=== PATIENT | male | born 1975 | race Hispanic/Latino ===

== ENCOUNTER 2023-05-31 07:24 | Day surgery (SDC) | payer BC ==
[2023-05-29 12:14] LABS: BASOPHILS # (AUTO) 0.05 K/uL (0.00-0.20); BASOPHILS % (AUTO) 0.8 % (0.0-5.0); EOSINOPHILS # (AUTO) 0.15 K/uL (0.00-0.70); EOSINOPHILS % (AUTO) 2.3 % (0.0-8.0); HEMATOCRIT 41.7 % (42-54); IMMATURE GRANULOCYTE ABSOLUTE 0.04 K/uL (0-1); LYMPHOCYTES # (AUTO) 1.7 K/uL (1.0-4.8); MEAN CORPUSCULAR HEMOGLOBIN 22.9 pg (27.0-33.0); MEAN CORPUSCULAR HGB CONC 30.5 g/dL (32.0-36.0); MEAN CORPUSCULAR VOLUME 75.3 fL (79-99); MONOCYTES # (AUTO) 0.6 K/uL (0.1-1.0); MONOCYTES % (AUTO) 8.5 % (3.0-13.0); NEUTROPHILS # (AUTO) 3.9 K/uL (1.8-7.7); NEUTROPHILS % (AUTO) 60.8 % (40.0-77.0); PLATELET COUNT (AUTO) 343 K/uL (130-400); RED BLOOD CELL COUNT(AUTO) 5.54 MIL/uL (4.50-6.20); RED CELL DISTRIBUTION WIDTH 17.7 % (11.0-15.5); WHITE BLOOD COUNT (AUTO) 6.5 K/uL (4.8-10.8)
[2023-05-29 12:27] LABS: CREATININE 0.8 mg/dL (0.5-1.5); POTASSIUM 4.3 mmol/L (3.5-5.1)
[2023-05-29 12:50] VITALS: BP 138/81; PULSE 75; RESP 16
[2023-05-31] VITALS (18 sets, daily range): BP systolic 91–133; BP diastolic 60–95; PULSE 62–84; RESP 14–19
[~2023-05-31] VITALS: Ht 172.7 cm; Wt 94.4 kg
[~2023-05-31 07:24] MED LIST: LISI1TAB51 PO; METF-444 PO; PIOG30TA70 PO; ROSU10TA28 PO
[2023-05-31] MEDS ORDERED: CEFAZOLIN SODIUM 2 GM VIAL ONE (07:45)
[2023-05-31] MEDS ORDERED: 0.9%NACL 1000ML 1,000 ML IV ONE (07:45)
[2023-05-31] MEDS ORDERED: BUPIVACAINE/PF 0.25% 30ML VIAL IJ ONE (08:16)
[2023-05-31] MEDS ORDERED: LIDOCAINE HCL 1% MDV 50ML VIAL ONE (08:16)
[2023-05-31] MEDS ORDERED: DEXAMETHASONE SOD PHOSPHATE 10MG/ML 1ML VIAL ONE (09:06)
[2023-05-31] MEDS ORDERED: PROPOFOL 10 MG/ML 20ML VIAL IV ONE (09:07)
[2023-05-31] MEDS ORDERED: ONDANSETRON 4MG INJ ONE (09:07)
[2023-05-31] MEDS ORDERED: LIDOCAINE PF 100MG/5ML (2%) SYRINGE 5ML ONE (09:07)
[2023-05-31] MEDS ORDERED: NEOSTIGMINE METHYLSULFATE 1MG/ML IV ONE (09:07)
[2023-05-31] MEDS ORDERED: GLYCOPYRROLATE 0.2 MG/ML 5 ML VIAL ONE (09:07)
[2023-05-31] MEDS ORDERED: ROCURONIUM BROMIDE 10MG/1ML 5ML VL ONE (09:07)
[2023-05-31] MEDS ORDERED: SUCCINYLCHOLINE CHLORIDE 20 MG/ML 10 ML VIAL ONE (09:07)
[2023-05-31] MEDS ORDERED: MIDAZOLAM HCL 1 MG/ML 2ML VIAL ONE (09:07)
[2023-05-31] MEDS ORDERED: FENTANYL CITRATE PF 50 MCG/1 ML 2ML VIAL ONE ×2 (09:08→10:01)
[2023-05-31] MEDS ORDERED: BACITRACIN 28.4 GM OINT TP ONE (09:46)
[2023-05-31] MEDS ORDERED: CEPH500B PO ×2 (11:58→11:59)
[2023-05-31] MEDS ORDERED: TRAM50TA4 PO (12:00)
== END 2023-05-31 12:44 | disposition home or self-care (01) ==
LOC: DAH 07:24
PROVIDERS: ATTEND Urology
DX: N47.1 Phimosis (principal); N48.89 Other specified disorders of penis; R35.1 Nocturia; I10 Essential (primary) hypertension; E11.9 Type 2 diabetes mellitus without complications; Z79.899 Other long term (current) drug therapy; Z79.01 Long term (current) use of anticoagulants; Z98.890 Other specified postprocedural states; Z79.84 Long term (current) use of oral hypoglycemic drugs
CPT/HCPCS: 80048; 85025; 36415; 54161; 82948 ×2; 88304; A6260; J7030 ×2; A4344; J3010 ×2; J1100; J0330; J0665; J3490 ×2; J2001; J2250; J2704; J2405; J2710; J0690; A4215; A4223; A4213; A4222; A4221; A4663; A4600; A4510